=== PATIENT | female | born 2000 | race Two or more races ===

== ENCOUNTER 2023-02-27 06:55 | Emergency (ER) | payer SELFPAY ==
[2023-02-27] MEDS ORDERED: NAPR-746 PO (11:11)
== END 2023-02-27 07:22 | disposition left against medical advice (07) ==
LOC: ER 06:55
DX: R06.02 Shortness of breath (principal); R11.0 Nausea; N64.4 Mastodynia; Z53.21 Procedure and treatment not carried out due to patient leaving prior to being seen by health care provider

== ENCOUNTER 2023-02-27 09:14 | Emergency (ER) | payer MEDICAID, OTHER ==
[~2023-02-27] VITALS: Ht 149.9 cm; Wt 60.5 kg
[2023-02-27 10:01] VITALS: BP 120/75; PULSE 100; RESP 18; TEMP 98; O2SAT 96
[2023-02-27] MEDS ORDERED: NAPR-746 PO (11:11)
== END 2023-02-27 11:14 | disposition home or self-care (01) ==
LOC: ER 09:14
DX: N64.4 Mastodynia (principal)
CPT/HCPCS: 76642